=== PATIENT | female | born 1955 | race Caucasian/White ===

== ENCOUNTER → 2018-03-17 | Outpatient (CLI) | payer BC ==
[~2018-03-17] MED LIST: COZA50TA PO; PROT40TA PO
--- NOTE | 2018-03-20 09:44 | RSPPFT ---
DATE OF PROCEDURE: 03/17/18 COMMENTS: VOLUMES DYNAMIC: FVC and FEV1 normal. STATIC: FRC, RV mildly reduced; TLC normal. FLOWS: FEV1% and FEF 25-75 normal. DIFFUSION: Normal. FLOW VOLUME LOOP: Normal configuration. IMPRESSION: Essentially normal pulmonary functions with a mild reduction in RV and FRC but no significant airways obstruction or restriction. There is no reduction in diffusion. No significant improvement post-bronchodilator.
== END ==
LOC: HRSP 08:57
PROVIDERS: ATTEND Internal Medicine
DX: J45.909 Unspecified asthma, uncomplicated (principal)
CPT/HCPCS: 94060; 94726; 94729; 95012